=== PATIENT | female | born 1945 | race Caucasian/White ===

== ENCOUNTER 2025-01-29 03:07 | Emergency (ER) | payer MEDICARE ==
[2025-01-29] MEDS ORDERED: EPINEPHrine 1:10,000 [1 MG/10 ML] SYRINGE ONE (14:46)
[2025-01-29] MEDS ORDERED: CALCIUM GLUCONATE 100 MG/ML 10 ML IVP ONE (14:46)
[2025-01-29] MEDS ORDERED: SODIUM BICARBONATE [ADULT] 8.4% 50 MEQ/50 ML SYRINGE IVP ONE (14:46)
[2025-01-29] MEDS ORDERED: 0.9% SODIUM CHLORIDE 10 ML SYRINGE IVP ONE (14:46)
== END 2025-01-29 03:24 ==
LOC: EMS 03:07
DX: I46.9 Cardiac arrest, cause unspecified (principal); E11.22 Type 2 diabetes mellitus with diabetic chronic kidney disease; I12.0 Hypertensive chronic kidney disease with stage 5 chronic kidney disease or end stage renal disease; N18.6 End stage renal disease; Z99.2 Dependence on renal dialysis
CPT/HCPCS: 99285; 92950; J0610; J0169; J3490